=== PATIENT | female | born 1990 | race Two or more races ===

== ENCOUNTER 2018-04-09 13:52 | Outpatient (CLI) | payer OTHER ==
[2018-04-09 15:51] LABS: THYROID STIMULATING HORMONE 1.23 uIU/mL (0.34-5.60)
[2018-04-09 15:53] LABS: FREE T4 (FREE THYROXINE) 0.81 ng/dL (0.58-1.64)
== END 2018-04-09 13:53 | disposition home or self-care (01) ==
LOC: LAB 13:52
PROVIDERS: ATTEND Nurse Practitioner Obstetrics & Gynecology
DX: E34.9 Endocrine disorder, unspecified (principal)
CPT/HCPCS: 36415; 84439; 84443

== ENCOUNTER 2018-06-04 16:50 | Outpatient (CLI) | payer OTHER ==
--- NOTE | 2018-06-04 20:39 | Ultrasound Report ---
Reason: ENCOUNTER FOR TEST, RESULT POSITIVE Procedure Date: 06/04/2018 Accession Number: [id number] / [id number] Procedure: US - OB First Trimester CPT Code: FULL RESULT: EXAM: FIRST TRIMESTER OBSTETRIC ULTRASOUND (Less than 11 weeks) EXAM DATE: 06/04/2018 05:59 PM. CLINICAL HISTORY: ENCOUNTER FOR TEST, RESULT POSITIVE. LMP: 04/06/2018. COMPARISONS: None. TECHNIQUE: Transabdominal and transvaginal ultrasound examination with static image documentation. CLINICAL DATES: EGA 8 weeks 3 days with KEVIN 01/11/2019 based on LMP. ASSESSMENT: Gestational Sac: Single intrauterine. Embryo: CRL (crown-rump length) 17 mm = 8 weeks 1 day. Cardiac activity: 166 beats per minute. Yolk sac: 2.6 mm. Amniotic fluid: Not accurately assessed at this gestational age. Early placenta: Not visible at this gestational age. Other: No perigestational fluid collection demonstrated. MATERNAL STRUCTURES: Uterus: Anteverted. Unremarkable. Cervix: Closed. Right Ovary/Adnexa: Ovary not seen. No adnexal abnormality. Limitation secondary to bowel gas. Left Ovary/Adnexa: The ovary measures 2.9 x 1 x 2.3 cm, volume 3.4 cc. Unremarkable. Free Fluid: None. Other: None. IMPRESSION: 1. Single viable intrauterine at EGA 8 weeks 1 day with KEVIN 01/13/2019 based on crown-rump length, which is concordant with clinical dates. 2. Assigned dating is KEVIN 01/11/2019 based on LMP. 3. No complications, such as a subchorionic hemorrhage. 4. Right ovary not seen. Normal left ovary. Both adnexa are unremarkable. RADIA
== END 2018-06-04 16:51 | disposition home or self-care (01) ==
LOC: DI 16:50
PROVIDERS: ATTEND Registered Nurse
DX: Z32.01 Encounter for pregnancy test, result positive (principal)
CPT/HCPCS: 76801; 76817

== ENCOUNTER 2018-06-18 14:35 | Outpatient (CLI) | payer OTHER ==
[2018-06-18 16:09] LABS: BASOPHILS % (AUTO) 0.5 %; EOSINOPHILS # (AUTO) 0.1 10^3/uL (0.0-0.7); EOSINOPHILS % (AUTO) 0.5 %; HGB - HEMOGLOBIN 12.2 g/dL (12.0-16.0); LYMPHOCYTES # (AUTO) 1.8 10^3/uL (1.5-3.5); LYMPHOCYTES % (AUTO) 18.9 %; MEAN CORPUSCULAR HEMOGLOBIN 28.1 pg (27.0-31.0); MEAN CORPUSCULAR VOLUME 85.1 fL (81.0-99.0); MEAN PLATELET VOLUME 7.4 fL (7.9-10.8); MONOCYTES # (AUTO) 0.4 10^3/uL (0.0-1.0); MONOCYTES % (AUTO) 4.3 %; NEUTROPHILS # (AUTO) 7.1 10^3/uL (1.5-6.6); NEUTROPHILS % (AUTO) 75.8 %; PLT - PLATELET COUNT 360 10^3/uL (130-450); RED BLOOD COUNT 4.33 10^6/uL (4.20-5.40); RED CELL DISTRIBUTION WIDTH 13.8 % (12.0-15.0); WHITE BLOOD COUNT 9.3 x10^3/uL (4.8-10.8)
[2018-06-18 17:29] LABS: HB2 TOTAL 12.3 g/dL; HEMOGLOBIN A1C 0.46 g/dL; HEMOGLOBIN A1C % 5.6 % (4.6-6.2)
[2018-06-18 17:59] LABS: BILIRUBIN,URINE NEGATIVE (NEGATIVE); GLUCOSE, URINE (UA) NEGATIVE (NEGATIVE); KETONES,URINE (UA) NEGATIVE (NEGATIVE); LEUKOCYTE ESTERASE, URINE NEGATIVE (NEGATIVE); NITRITE,URINE NEGATIVE (NEGATIVE); OCCULT BLOOD,URINE NEGATIVE (NEGATIVE); PH,URINE 5.5 PH (5.0-7.5); PROTEIN,URINE NEGATIVE (NEGATIVE); UROBILINOGEN,URINE 0.2 (NORMAL) E.U./dL (NORMAL)
[2018-06-18 18:09] LABS: CLARITY,URINE CLEAR (CLEAR)
[2018-06-18 18:10] LABS: BACTERIA,URINE Rare /HPF (None Seen); CRYSTALS,URINE 6-10 Calcium Oxalate /LPF; MUCUS,URINE Few Strands; RBC,URINE None Seen /HPF (0-5); SQUAMOUS EPITHELIAL CELL,UR NONE SEEN (<= Few)
[2018-06-19 13:46] LABS: HIV AG/AB 4TH GEN NON-REACTIVE (NON-REACTIVE)
[2018-06-19 13:47] LABS: HEPATITIS B SURFACE ANTIGEN NON-REACTIVE (NON-REACTIVE)
== END 2018-06-18 14:36 | disposition home or self-care (01) ==
LOC: LAB 14:35
PROVIDERS: ATTEND Registered Nurse
DX: Z36.9 Encounter for antenatal screening, unspecified (principal)
CPT/HCPCS: 36415; 80306; 81001; 81599; 82950; 83036; 85025; 86592; 86762; 86850; 86900; 86901; 87340; 87389; 87491; 87591

== ENCOUNTER 2018-06-18 22:46 | Outpatient (CLI) | payer OTHER ==
[2018-06-18 15:06] LABS: MUDS CUTOFF CONCENTRATIONS CUTOFF CONC BELOW:
[2018-06-18 16:18] LABS: AMPHETAMINE SCREEN,URINE NEGATIVE (NEGATIVE); BENZODIAZEPINES SCREEN, URINE NEGATIVE (NEGATIVE); COCAINE SCREEN URINE NEGATIVE (NEGATIVE); METHADONE SCREEN, URINE NEGATIVE (NEGATIVE); METHAMPHETAMINES SCREEN, URINE NEGATIVE (NEGATIVE); OPIATE SCREEN, URINE NEGATIVE (NEGATIVE); OXYCODONE SCREEN, URINE NEGATIVE (NEGATIVE); PROPOXYPHENE SCREEN, URINE NEGATIVE (NEGATIVE); TRICYCLIC ANTIDEPRESSANT,URINE NEGATIVE (NEGATIVE)
== END 2018-06-18 22:47 | disposition home or self-care (01) ==
LOC: LAB.R 22:46
PROVIDERS: ATTEND Registered Nurse
DX: Z36.9 Encounter for antenatal screening, unspecified (principal)
CPT/HCPCS: 80306; 87491; 87591

== ENCOUNTER 2018-07-02 07:49 | Outpatient (CLI) | payer OTHER | END 2018-07-02 07:50 | disposition home or self-care (01) | LOC: LAB 07:49 | PROVIDERS: ATTEND Registered Nurse | DX: R73.02 Impaired glucose tolerance (oral) (principal) | CPT/HCPCS: 36415; 82951; 82952 ==

== ENCOUNTER 2018-07-11 15:05 | Outpatient (CLI) | payer OTHER ==
[2018-07-11 15:34] LABS: TOTAL VOLUME 24HRS,URINE 1600 mL
[2018-07-11 15:46] LABS: TOTAL PROTEIN 24HR,URINE 144 mg/24hr (40-150); TOTAL PROTEIN,URINE TIMED 9 mg/dL
== END 2018-07-11 15:06 | disposition home or self-care (01) ==
LOC: LAB.R 15:05
PROVIDERS: ATTEND Registered Nurse
DX: O24.312 Unspecified pre-existing diabetes mellitus in pregnancy, second trimester (principal)
CPT/HCPCS: 84156

== ENCOUNTER 2018-07-12 10:45 | Outpatient (CLI) | payer OTHER ==
[2018-07-12 11:09] LABS: ALBUMIN 4.3 g/dL (3.2-5.5); ALBUMIN/GLOBULIN RATIO 1.2 (1.0-2.2); BILIRUBIN,TOTAL 0.7 mg/dL (0.2-1.0); CREATININE 0.6 mg/dL (0.4-1.0); TOTAL PROTEIN 7.9 g/dL (6.7-8.2)
== END 2018-07-12 10:46 | disposition home or self-care (01) ==
LOC: LAB 10:45
PROVIDERS: ATTEND Registered Nurse
DX: O24.312 Unspecified pre-existing diabetes mellitus in pregnancy, second trimester (principal)
CPT/HCPCS: 36415; 80053

== ENCOUNTER 2018-12-15 21:32 | Outpatient (CLI) | payer BC ==
[2018-12-15] MEDS ORDERED: LACTATED RINGERS 1,000 ML IV ONE ×2 (22:21→22:25)
[2018-12-15] MEDS: ONDANSETRON 4 MG/2 ML VIAL IVP PRN (22:36)
[2018-12-15 23:05] LABS: GLUCOSE, URINE (UA) NEGATIVE (NEGATIVE); KETONES,URINE (UA) >=80 mg/dL (NEGATIVE); LEUKOCYTE ESTERASE, URINE NEGATIVE (NEGATIVE); NITRITE,URINE POSITIVE (NEGATIVE); OCCULT BLOOD,URINE NEGATIVE (NEGATIVE); PROTEIN,URINE TRACE mg/dL (NEGATIVE); UROBILINOGEN,URINE 1 (NORMAL) E.U./dL (NORMAL)
[2018-12-15 23:08] LABS: BASOPHILS % (AUTO) 0.2 %; EOSINOPHILS % (AUTO) 0.1 %; LYMPHOCYTES # (AUTO) 0.9 10^3/uL (1.5-3.5); LYMPHOCYTES % (AUTO) 8.3 %; MEAN CORPUSCULAR HEMOGLOBIN 28.8 pg (27.0-31.0); MEAN CORPUSCULAR HGB CONC 34.4 g/dL (32.0-36.0); MEAN CORPUSCULAR VOLUME 83.8 fL (81.0-99.0); MEAN PLATELET VOLUME 8.6 fL (7.9-10.8); MONOCYTES # (AUTO) 0.6 10^3/uL (0.0-1.0); MONOCYTES % (AUTO) 5.1 %; NEUTROPHILS # (AUTO) 9.4 10^3/uL (1.5-6.6); NEUTROPHILS % (AUTO) 86.3 %; PLT - PLATELET COUNT 266 10^3/uL (130-450); RED BLOOD COUNT 3.81 10^6/uL (4.20-5.40); RED CELL DISTRIBUTION WIDTH 13.6 % (12.0-15.0); WHITE BLOOD COUNT 10.9 x10^3/uL (4.8-10.8)
[2018-12-15 23:16] LABS: BACTERIA,URINE Many /HPF (None Seen); BILIRUBIN,URINE SMALL (NEGATIVE); CLARITY,URINE HAZY (CLEAR); ICTOTEST,URINE POSITIVE; MUCUS,URINE Few Strands; RBC,URINE 0-5 /HPF (0-5); SQUAMOUS EPITHELIAL CELL,UR MANY Squamous (<= Few)
[2018-12-15 23:20] LABS: ALBUMIN 3.3 g/dL (3.2-5.5); ALBUMIN/GLOBULIN RATIO 0.8 (1.0-2.2); BILIRUBIN,TOTAL 0.6 mg/dL (0.2-1.0); CREATININE 0.4 mg/dL (0.4-1.0); TOTAL PROTEIN 7.3 g/dL (6.7-8.2)
[2018-12-15] MEDS: LACTATED RINGERS 1,000 ML IV SCH (23:53)
[2018-12-16 00:28] LABS: PROTEIN/CREATININE RATIO,URINE 0.2 (<=0.2)
[2018-12-16 00:29] LABS: BILIRUBIN,URINE NEGATIVE (NEGATIVE); GLUCOSE, URINE (UA) NEGATIVE (NEGATIVE); KETONES,URINE (UA) >=80 mg/dL (NEGATIVE); LEUKOCYTE ESTERASE, URINE NEGATIVE (NEGATIVE); NITRITE,URINE NEGATIVE (NEGATIVE); OCCULT BLOOD,URINE NEGATIVE (NEGATIVE); PROTEIN,URINE NEGATIVE (NEGATIVE); UROBILINOGEN,URINE 0.2 (NORMAL) E.U./dL (NORMAL)
[2018-12-16 00:31] LABS: CLARITY,URINE CLEAR (CLEAR)
[2018-12-16 00:38] LABS: BACTERIA,URINE Rare /HPF (None Seen); RBC,URINE 0-5 /HPF (0-5); SQUAMOUS EPITHELIAL CELL,UR MOD Squamous (<= Few)
[2018-12-16] MEDS ORDERED: MORPHINE 2 MG/ML SYRINGE IVP SCH (01:00)
[2018-12-16] MEDS ORDERED: ACETAMINOPHEN 500 MG TABLET PO STA (01:18)
[2018-12-16] MEDS ORDERED: ACETAMINOPHEN 500 MG TABLET PO PRN (01:47)
--- NOTE | 2018-12-16 02:44 | Ultrasound Report ---
Reason: Right Upper abdominal pain Procedure Date: 12/16/2018 Accession Number: [id number] / [id number] Procedure: US - Abdomen Limited CPT Code: FULL RESULT: EXAM: ABDOMEN ULTRASOUND LIMITED, RUQ EXAM DATE: 12/16/2018 02:00 AM. CLINICAL HISTORY: Right Upper abdominal pain. COMPARISON: None. TECHNIQUE: Real-time scanning was performed with static images obtained. FINDINGS: Liver: Normal in size and echotexture. 19.5 cm. Main portal vein flow: Hepatopetal. Gallbladder: Cholelithiasis. No wall thickening or pericholecystic fluid. Mild localized tenderness. Biliary System: CBD measures 9 mm. Dilated common bile duct, with possible choledocholithiasis. Other: No right hydronephrosis. No free fluid. IMPRESSION: Cholelithiasis, with a dilated common bile duct and possible choledocholithiasis. RADIA
[2018-12-16 03:01] VITALS: BP 127/72
[2018-12-16] MEDS: LACTATED RINGERS 1,000 ML IV SCH (03:21)
[2018-12-16] MEDS ORDERED: LACTATED RINGERS 1,000 ML IV SCH (04:00)
--- NOTE | 2018-12-16 04:02 | Discharge Plan ---
Discharge Plan Disposition: 02 Transfer Acute Care Hosp Condition: Fair No Smoking: If you smoke, Please STOP! Call for help.
--- NOTE | 2018-12-16 04:07 | HISTORY & PHYSICAL EXAMINATION ---
Admit History - Other Maternal History Other Maternal History: CC: abdominal pain HPI: at 15:00 she had gradual onset of abdominal pain that increased to severe around 17:00. Background pain is like pressure, when it is severe it feels like "everything"--sharp, dull, stabbing, aching, etc. Tried rest, showers, position changes, and nothing helped. Had emesis 5x before presenting to the hospital. Has never had severe pain like this before but felt the pressure sensation from time to time. Radiates down the right abdomen and when the pain is severe it pain wraps around on the right side to the mid-back. Onset shortly after a meal. Not associated with change in bowel or bladder function or any labor symptoms. Position changes make it worse. Nothing really makes it better. PMH: Obese. Possible type 2 DM PSH: wisdom teeth SH: no t/e/d. 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 Iron and PNV daily. Allergies: NKDA ROS: No fevers, eye issues, nasal congestion, ear pain, sore throat, chest pain, shortness of breath, dysuria, hematuria, diarrhea, gait problems, or mood problems. OB: G1 with KEVIN 01/11/19 by 8w US --A2 GDM on metformin. Possible occult type 2 as it was dx'ed early 2nd trimester. On 500mg/1000mg. Normal anatomy scan and echo. Good sugar control, compliant, stable A1c's --GBS positive --Anemia O: 127/72 RR 18-28 HR 98 Temp 36.8 O2 98% on room air Alert, squirming in bed, otherwise NAD Head normocephalic Neck without thyromegaly Cor RRR no murmurs Lungs CTA bilat Cor RRR no murmurs Abd exam: significant RUQ tenderness. No guarding, no rebound. Gravid. Fundus nontender Lyphatic: no cervical lymphadenopathy Integument: no obvious rashes Neuro: intact Psych: normal affect NST: category 1, toco neg Labs: AST 90, ALT 95, Bili 0.6, lipase 21, UA neg, P:C 0.2, WBC 10.9 with left shift, Hct 31.9, plts 226 Studies: US 12/16/18: Cholelithiasis, dilated common bile duct, possible choledocholithiasis. No wall thickening. CBD 9mm. A/P: 28yo G1 at 36w2d by 8w US with acute onset of cholelithiasis, possible choledocholithiasis, without current evidence of pancreatitis--normal lipase. AST and ALT are elevated, bilirubin normal, c/w early disease. Afebrile and nontoxic. WBC elevated to common range at 10.9. Left shift could be due to gallbladder or due to . --Diagnosis explained to pt and family, related that cholecystectomy would likely be performed and probable delivery as well. --Doubt preeclampsia. Normal blood pressures, no headache or visual changes, normal platelets, normal P:C ratio. --We do not have capacity to do ERCP here if the patient ultimately needs one. Will transport to [facility] for further management. Pt had received her care with the [facility] midwives and is s/p MFM consultation there too. Will transport by ground due to stable status. NPO. Morphine for pain control. wellbeing is reassuring. No signs of labor. GBS positive no prophylaxis given here Late , no steroids given here Obese, ambulatory here, SCDs placed, no other VTE prophylaxis done. Physical - Abdominal Exam Vital Signs: Temp Pulse Resp BP Pulse Ox 98.2 F 98 28 H 127/72 98 12/16/18 02:56 12/16/18 02:56 12/16/18 02:56 12/16/18 02:56 12/16/18 02:56
[2018-12-16] MEDS: ONDANSETRON 4 MG/2 ML VIAL IVP PRN (04:40)
[2018-12-16] MEDS: MORPHINE 2 MG/ML SYRINGE IVP PRN ×2 (04:55→06:42)
--- NOTE | 2018-12-16 04:56 | DISCHARGE SUMMARY ---
Discharge Summary Admit Date: 12/15/18 Discharge Date: 12/16/18 Discharging Provider: Zonia Code Status: Attempt Resuscitation Condition at Discharge: Fair Discharge Disposition: 02 Transfer Acute Care Hosp Discharge Facility Name: [facility] - DIAGNOSES Admission Diagnoses: RUQ pain IUP at 36w Discharge Diagnoses with Status of Each Condition: IUP at 36w Cholelithiasis, possible choledocolithiasis - HOSPITAL COURSE Hospital Course: Evaluated in triage for RUQ pain. No evidence of labor or preeclampsia. Pt with possible choledocolithiasis on US and AST and ALT were elevated. Emesis controlled with zofran. Pain controlled with morphine. NPO status maintained. Category 1 surveillance. Required transport to a higher level care facility for 1) ERCP capabilities 2) greater ICU capabilities due to possibility of pt developing pancreatitis while . - ALLERGIES Allergies/Adverse Reactions: Allergies Allergy/AdvReac Type Severity Reaction Status Date / Time No Known Drug Allergies Allergy Verified 12/16/18 04:40 - PHYSICAL EXAM AT DISCHARGE General Appearance: positive: Moderate distress - LABS Result Diagrams: 12/15/18 22:46 12/15/18 22:46 - DIAGNOSTIC IMAGING Diagnostic Imaging Results: Final report reviewed - FOLLOW UP Follow Up: With regular OB providers - TIME SPENT Time Spent in Discharge (Minutes): 75
== END 2018-12-16 06:50 | disposition short-term general hospital (02) ==
LOC: WFO 21:32 → FBP 21:39 → WFO 12-16 06:50
PROVIDERS: ATTEND Obstetrics & Gynecology
DX: O99.613 Diseases of the digestive system complicating pregnancy, third trimester (principal); K80.20 Calculus of gallbladder without cholecystitis without obstruction; O21.2 Late vomiting of pregnancy; O24.415 Gestational diabetes mellitus in pregnancy, controlled by oral hypoglycemic drugs; O99.213 Obesity complicating pregnancy, third trimester; O99.820 Streptococcus B carrier state complicating pregnancy; Z3A.36 36 weeks gestation of pregnancy; Z79.899 Other long term (current) drug therapy
CPT/HCPCS: 36415; 76705; 80053; 81001; 82570; 83690; 84156; 85025; 86850; 86900; 86901; 96374; 96375; 96376; 99214; J2270; J7120; 87086

== ENCOUNTER 2020-08-09 10:06 | Emergency (ER) | payer BC ==
[2020-08-09] MEDS ORDERED: ONDANSETRON 4 MG/2 ML VIAL IVP STA (11:01)
[2020-08-09] MEDS ORDERED: SODIUM CHLORIDE 0.9% 1,000 ML IV STA (11:01)
--- NOTE | 2020-08-09 11:01 | ED Physician Documentation ---
PD HPI ABD PAIN - Stated complaint Stated Complaint: ABD PX/SWEATING - Chief complaint Chief Complaint: Abd Pain - History obtained from History obtained from: Patient - History of Present Illness Timing - onset: Today Associated symptoms: Nausea, Vomiting. No: Hematemesis, Diarrhea, Constipation, Melena, Hematochezia, Dysuria, Hematuria Recently seen: Not recently seen - Additional information Additional information: Patient is a 30-year-old female who presents to the emergency department with abdominal pain. She states epigastric and right upper quadrant. Worse with movement. She states that this felt similar to when she had her cholecystectomy in December 2018. Has not had any issues since that time. She states she arrived at work today and had nausea and vomiting. No diarrhea. No constipation. She states she ate oatmeal for breakfast this morning and water. Denies any NSAIDs, coffee, caffeine. Review of Systems Constitutional: denies: Fever, Chills GI: reports: Nausea, Vomiting. denies: Diarrhea, Hematemesis, Bloody / black stool Skin: denies: Rash Musculoskeletal: denies: Neck pain, Back pain Neurologic: denies: Headache PD PAST MEDICAL HISTORY - Past Medical History Past Medical History: No - Past Surgical History Past Surgical History: Yes General: Cholecystectomy - Present Medications Home Medications: Ambulatory Orders Medication Instructions Recorded Confirmed Ondansetron Odt [Zofran] 4 mg TL Q6H PRN #10 tablet 08/09/20 Oxycodone HCl/Acetaminophen 1 - 2 each PO Q6H PRN #14 tablet 08/09/20 [Percocet 5-325 mg Tablet] - Allergies Allergies/Adverse Reactions: Allergies Allergy/AdvReac Type Severity Reaction Status Date / Time No Known Drug Allergies Allergy Verified 12/16/18 04:40 - Living Situation Living Arrangement: reports: At home - Social History Does the pt have substance abuse?: No - Family History Family history: reports: Non contributory PD ED PE NORMAL - Vitals Vital signs reviewed: Yes - General General: Alert and oriented X 3, No acute distress - HEENT HEENT: Moist mucous membranes - Neck Neck: Supple, no meningeal sign - Cardiac Cardiac: RRR, Strong equal pulses - Respiratory Respiratory: No respiratory distress, Clear bilaterally - Abdomen Abdomen: Soft, Non tender, Non distended - Back Back: No CVA TTP, No spinal TTP - Derm Derm: Warm and dry - Extremities Extremities: No edema, No calf tenderness / cord - Neuro Neuro: Alert and oriented X 3 Results - Vitals Vitals: Vital Signs - 24 hr 08/09/20 08/09/20 08/09/20 10:20 12:22 14:00 Temperature 36.7 C Heart Rate 72 78 87 Respiratory 16 19 17 Rate Blood Pressure 128/75 106/51 L 138/67 H O2 Saturation 99 99 99 08/09/20 14:48 Temperature 37.1 C Heart Rate 68 Respiratory 19 Rate Blood Pressure 138/65 H O2 Saturation 99 Oxygen O2 Source Room air - Labs Labs: Laboratory Tests 08/09/20 08/09/20 08/09/20 11:00 11:00 11:00 WBC 8.6 RBC 4.67 Hgb 13.3 Hct 40.9 MCV 87.6 MCH 28.5 MCHC 32.5 RDW 12.8 Plt Count 312 MPV 9.3 Neut # (Auto) 5.7 Lymph # (Auto) 2.2 [place] # (Auto) 0.5 Eos # (Auto) 0.1 Baso # (Auto) 0.0 Absolute Nucleated RBC 0.00 Nucleated RBC % 0.0 Sodium 140 Potassium 4.1 Chloride 97 L Carbon Dioxide 27 Anion Gap 16.0 H BUN 18 Creatinine 0.7 Estimated GFR (MDRD) 98 Glucose 132 H Calcium 9.4 Total Bilirubin 0.8 AST 34 ALT 33 Alkaline Phosphatase 78 Total Protein 7.9 Albumin 4.3 Globulin 3.6 Albumin/Globulin Ratio 1.2 Lipase 24 Urine Color YELLOW Urine Clarity CLOUDY Urine pH 5.0 Ur Specific [place] >=1.030 H Urine Protein NEGATIVE Urine Glucose (UA) NEGATIVE Urine Ketones NEGATIVE Urine Occult Blood NEGATIVE Urine Nitrite NEGATIVE Urine Bilirubin NEGATIVE Urine Urobilinogen 0.2 (NORMAL) Ur Leukocyte Esterase NEGATIVE Urine RBC None Seen Urine WBC 0-3 Ur Squamous Epith Cells FEW Squamous Amorphous Sediment Marked Urine Bacteria Rare Urine Mucus Few Strands Ur Microscopic Review INDICATED Urine Culture Comments NOT INDICATED Urine HCG, Qual NEGATIVE - Rads (name of study) CT abdomen pelvis Radiology: Prelim report reviewed, EMP read contemporaneously PD MEDICAL DECISION MAKING - ED course Complexity details: reviewed results, re-evaluated patient, considered differential, d/w patient ED course: 30-year-old female with abdominal pain of unclear etiology. Pain greatly improved in the emergency department. No acute findings on CT scan. The extrahepatic biliary ductal dilatation, does not have any associated LFT or bilirubin abnormalities, making a stone unlikely. We will trial her on pain medication for home and see how she progresses over the next 24 hours. Patient counseled regarding signs and symptoms for which I believe and urgent re- evaluation would be necessary. Patient with good understanding of and agreement to plan and is comfortable going home at this time This document was made in part using voice recognition software. While efforts are made to proofread this document, sound alike and grammatical errors may occur. 1. Mild extrahepatic biliary ductal dilatation without a calcified common duct stone or discrete mass visualized. Findings are nonspecific but likely reflect sequelae of prior cholecystectomy. Recommend correlation clinically. 2. No evidence of appendicitis or obstructive uropathy. 3. Hepatic steatosis. 4. Colonic diverticulosis without acute diverticulitis. Departure - Departure Disposition: Home, Self Care Clinical Impression: Abdominal pain Qualifiers: Abdominal location: unspecified location Qualified Code(s): R10.9 - Unspecified abdominal pain Condition: Good Instructions: ED Abdominal Pain Unkn Cause Follow-Up: your,doctor in 3 days for recheck [Other] Prescriptions: Oxycodone HCl/Acetaminophen [Percocet 5-325 mg Tablet] 1 - 2 each PO Q6H PRN #14 tablet PRN Reason: pain Ondansetron Odt [Zofran] 4 mg TL Q6H PRN #10 tablet PRN Reason: Nausea / Vomiting Comments: Use the medications as needed for pain. Return if you worsen. There are no acute findings on your CT scan or laboratory testing to explain your pain today. It is possible that this could worsen and need further evaluation. Do not drink alcohol or drive while on narcotic pain medicine. Note that many narcotic pain relievers also contain tylenol/acetaminophen. Pleas e ensure that your total dose of acetaminophen from all sources does not exceed 3 grams (3000mg) per day. You may constipated on this medication, take a stool softener such as "Colace" twice a day while you are on it. Also recommend a [id number]-[id number] laxative such as senna or MiraLAX any day that you do not have a bowel movement. If you received narcotic pain medication in the emergency department, do not drive or operate machinery for the next 24 hours. Forms: Activity restrictions Discharge Date/Time: 08/09/20 14:55
[2020-08-09 11:09] LABS: BASOPHILS % (AUTO) 0.5 %; BILIRUBIN,URINE NEGATIVE (NEGATIVE); EOSINOPHILS # (AUTO) 0.1 10^3/uL (0.0-0.7); EOSINOPHILS % (AUTO) 1.4 %; GLUCOSE, URINE (UA) NEGATIVE (NEGATIVE); HGB - HEMOGLOBIN 13.3 g/dL (12.0-16.0); KETONES,URINE (UA) NEGATIVE (NEGATIVE); LEUKOCYTE ESTERASE, URINE NEGATIVE (NEGATIVE); LYMPHOCYTES # (AUTO) 2.2 10^3/uL (1.5-3.5); LYMPHOCYTES % (AUTO) 25.4 %; MEAN CORPUSCULAR HEMOGLOBIN 28.5 pg (27.0-31.0); MEAN CORPUSCULAR HGB CONC 32.5 g/dL (32.0-36.0); MEAN CORPUSCULAR VOLUME 87.6 fL (81.0-99.0); MEAN PLATELET VOLUME 9.3 fL (7.9-10.8); MONOCYTES # (AUTO) 0.5 10^3/uL (0.0-1.0); MONOCYTES % (AUTO) 5.4 %; NEUTROPHILS # (AUTO) 5.7 10^3/uL (1.5-6.6); NEUTROPHILS % (AUTO) 66.8 %; NITRITE,URINE NEGATIVE (NEGATIVE); OCCULT BLOOD,URINE NEGATIVE (NEGATIVE); PLT - PLATELET COUNT 312 10^3/uL (130-450); PROTEIN,URINE NEGATIVE (NEGATIVE); RED BLOOD COUNT 4.67 10^6/uL (4.20-5.40); RED CELL DISTRIBUTION WIDTH 12.8 % (12.0-15.0); UROBILINOGEN,URINE 0.2 (NORMAL) E.U./dL (NORMAL); WHITE BLOOD COUNT 8.6 x10^3/uL (4.8-10.8)
[2020-08-09 11:12] LABS: CLARITY,URINE CLOUDY (CLEAR); HCG UR QUAL NEGATIVE
[2020-08-09 11:19] LABS: RBC,URINE None Seen /HPF (0-5); SQUAMOUS EPITHELIAL CELL,UR FEW Squamous (<= Few)
[2020-08-09 11:20] LABS: AMORPHOUS SEDIMENT,UR Marked /LPF; BACTERIA,URINE Rare /HPF (None Seen); MUCUS,URINE Few Strands
[2020-08-09 11:23] LABS: ALBUMIN 4.3 g/dL (3.2-5.5); ALBUMIN/GLOBULIN RATIO 1.2 (1.0-2.2); BILIRUBIN,TOTAL 0.8 mg/dL (0.2-1.0); CALCIUM 9.4 mg/dL (8.5-10.3); CREATININE 0.7 mg/dL (0.4-1.0); TOTAL PROTEIN 7.9 g/dL (6.7-8.2)
[2020-08-09] MEDS ORDERED: MORPHINE 2 MG/ML CARPUJECT IVP STA ×2 (11:49→14:39)
[2020-08-09] MEDS ORDERED: IOVERSOL 320 100 ML VIAL IVP ONE ×2 (13:20→14:30)
--- NOTE | 2020-08-09 14:30 | CT Report ---
PROCEDURE: Abdomen/Pelvis W INDICATIONS: RUQ pain CONTRAST: IV CONTRAST: Optiray 320 ml: 100 PO CONTRAST: *NO PO CONTRAST TECHNIQUE: After the administration of intravenous contrast, 5 mm thick sections acquired from the diaphragms to the symphysis. 5 mm thick coronal and sagittal reformats were acquired. For radiation dose reducti on, the following was used: automated exposure control, adjustment of mA and/or kV according to jhon ent size. COMPARISON: None. FINDINGS: Image quality: Excellent. ABDOMEN: Lung bases: Lung bases are clear. Heart size is normal. Solid organs: There is diffuse hypoattenuation of the liver consistent with fatty infiltration. The g allbladder is surgically absent. There is mild biliary ductal dilatation, with the common bile duct m easuring up to approximately 1 cm and tapering distally into the ampulla Vater. No calcified common d uct stones. The spleen is normal in size. Pancreas enhances normally without peripancreatic fat stran ding or fluid collections. No pancreatic duct dilatation. No adrenal nodules. Kidneys demonstrate no hydronephrosis. Peritoneum and bowel: Bowel loops demonstrate normal wall thickness and caliber. No evidence of leslie endicitis. There are a few colonic diverticula without acute diverticulitis. No free fluid or air. Nodes and vessels: No retroperitoneal or mesenteric adenopathy by size criteria. Aorta and inferior vena cava are normal in size. Miscellaneous: No ventral hernias. PELVIS: Genitourinary: Bladder wall thickness is normal. Miscellaneous: No inguinal hernias or adenopathy. Bones: No suspicious bony lesions. No vertebral body compression fractures. IMPRESSION: 1. Mild extrahepatic biliary ductal dilatation without a calcified common duct stone or discrete mass visualized. Findings are nonspecific but likely reflect sequelae of prior cholecystectomy. Recommend correlation clinically. 2. No evidence of appendicitis or obstructive uropathy. 3. Hepatic steatosis. 4. Colonic diverticulosis without acute diverticulitis. Reviewed by: José Luis Osullivan MD on 08/09/2020 2:29 PM [facility] Approved by: José Luis Osullivan MD on 08/09/2020 2:29 PM [facility] Station ID: [id number]
[2020-08-09 14:49] VITALS: BP 138/65
== END 2020-08-09 14:55 | disposition home or self-care (01) ==
LOC: ED 10:06
DX: R10.13 Epigastric pain (principal)
CPT/HCPCS: 36415; 74177; 80053; 81001; 81025; 83690; 85025; 96361; 96374; 96375; 96376; 99283; 99284; Q9967; 81003; 87086